=== PATIENT | female | born 1935 | race African-American/Black ===

== ENCOUNTER 2018-08-27 20:39 | Inpatient (IN) | payer MEDICARE, MEDICAID ==
[~2018-08-27] VITALS: Ht 167.6 cm; Wt 56.7 kg
[~2018-08-27 20:39] MED LIST: ASPI-1159 PO; BENA20TA10 PO; CHOL500010 PO; SIMV10TA6 PO
[2018-08-27] MEDS ORDERED: SODIUM CHLORIDE 0.9% 1000ML BAG (SEPSIS BOLUS) IV ONE (21:00)
[2018-08-27 21:55] LABS: BASOPHILS % 0.6 % (0.0-2.0); EOSINOPHILS % 1.6 % (0.0-5.0); HEMATOCRIT. 32.4 % (36.0-48.0); HEMOGLOBIN. 9.8 g/dL (12.0-16.0); LYMPHOCYTES % 33.8 % (20.0-50.0); MEAN CORPUSCULAR HEMOGLOBIN 26.8 pg (28.0-32.0); MEAN CORPUSCULAR VOLUME 88.8 fL (81.0-99.0); MEAN PLATELET VOLUME 8.3 fl (7.4-10.4); MONOCYTES % 5.6 % (2.0-8.0); NEUTROPHILS % 58.4 % (40.0-76.0); PLATELET 197 x1000/uL (130-400); RED BLOOD CELL COUNT 3.65 mill/uL (4.2-5.4); RED CELL DISTRIBUTION WIDTH 14.3 % (11.6-14.6)
[2018-08-27 21:59] LABS: CHLORIDE 110 mEq/L (98-107)
[2018-08-27 23:08] LABS: CLARITY URINE CLEAR (CLEAR); COLOR URINE YELLOW (YELLOW); KETONES URINE NEGATIVE (NEGATIVE); LEUKOCYTE ESTERASE URINE NEGATIVE (NEGATIVE); NITRITE URINE NEGATIVE (NEGATIVE); OCCULT BLOOD URINE NEGATIVE (NEGATIVE); PH URINE 6.5 (4.5-8.0); PROTEIN URINE NEGATIVE (NEGATIVE); SPECIFIC GRAVITY URINE 1.007 (1.005-1.030); UROBILINOGEN URINE 0.2 E.U./dL (0.2-1.0)
[2018-08-28] MEDS ORDERED: ACETAMINOPHEN 325MG TABLET PO PRN (08:30)
[2018-08-28] MEDS ORDERED: GUAIFENESIN 200MG/10ML SUGAR FREE UDC PO PRN (08:30)
[2018-08-28] MEDS ORDERED: ONDANSETRON HCL 4MG/2ML INJ IV PRN (08:30)
[2018-08-28] MEDS ORDERED: MAGNESIUM/ALUMINUM HYDROXIDE/SIMETHICONE 30ML UDC PO PRN (08:30)
[2018-08-28] MEDS ORDERED: CLONIDINE 0.1MG TABLET PO PRN (08:30)
[2018-08-28] MEDS ORDERED: IPRATROPIUM/ALBUTEROL 0.5-3(2.5)MG/3ML NEB INH PRN (08:30)
[2018-08-28] MEDS ORDERED: DEXTROSE 50% WATER 50ML SYRINGE IV PRN ×2 (08:30)
[2018-08-28 10:12] LABS: BASOPHILS % 0.6 % (0.0-2.0); EOSINOPHILS % 0.7 % (0.0-5.0); HEMATOCRIT. 35.1 % (36.0-48.0); HEMOGLOBIN. 10.9 g/dL (12.0-16.0); LYMPHOCYTES % 18.4 % (20.0-50.0); MEAN CORPUSCULAR HEMOGLOBIN 26.3 pg (28.0-32.0); MEAN CORPUSCULAR VOLUME 84.3 fL (81.0-99.0); MONOCYTES % 7.2 % (2.0-8.0); NEUTROPHILS % 73.1 % (40.0-76.0); PLATELET 229 x1000/uL (130-400); RED BLOOD CELL COUNT 4.16 mill/uL (4.2-5.4); RED CELL DISTRIBUTION WIDTH 14.1 % (11.6-14.6)
[2018-08-28 10:19] LABS: CHLORIDE 112 mEq/L (98-107)
[2018-08-28 10:26] LABS: TOTAL IRON BINDING CAPACITY 199 ug/dL (250-450)
[2018-08-28 10:28] LABS: HDL CHOLESTEROL 43 mg/dL (40-59); LDL CHOLESTEROL 125 mg/dL (5-100)
[2018-08-28 11:53] LABS: VITAMIN B12 SERUM 935 pg/mL (211-911)
[2018-08-28 12:10] LABS: HEPATITIS A AB IGM NEGATIVE (NEGATIVE)
[2018-08-28 13:42] LABS: HEPATITIS B SURFACE ANTIGEN NEGATIVE
[2018-08-28 14:38] VITALS: BP 134/84
[2018-08-28 14:43] VITALS: BP 128/82
[2018-08-28 14:46] VITALS: BP 129/77
[2018-08-28] MEDS ORDERED: SODIUM CHL 0.45% + KCL 20MEQ/L 1,000 ML IV SCH (16:00)
[2018-08-28] MEDS ORDERED: ENOXAPARIN 30MG/0.3ML SYR SUBCUT SCH (17:00)
[2018-08-28] MEDS: BLOOD SUGAR DIAGNOSTIC STRIP TEST SCH ×2 (17:20→21:00)
[2018-08-28] MEDS: ASPIRIN 81MG EC TABLET PO SCH (17:44)
[2018-08-28] MEDS: DOCUSATE SODIUM 250MG CAPSULE PO SCH (17:44)
[2018-08-28 17:54] VITALS: BP 134/84
[2018-08-28] MEDS: INSULIN LISPRO 100 UNITS/ML SUBCUT SCH ×2 (19:04→21:00)
[2018-08-28 19:24] LABS: CREATINE KINASE MB FRACTION 3.5 ng/mL (0.5-3.6)
[2018-08-28 21:09] VITALS: BP 134/85
[2018-08-28] MEDS: MEMANTINE HCL 10MG TABLET PO SCH (21:20)
[2018-08-28] MEDS: ATORVASTATIN CALCIUM 10MG TABLET PO SCH (21:20)
[2018-08-28] MEDS: ENOXAPARIN 40MG/0.4ML SYR SUBCUT SCH (21:20)
[2018-08-28 23:51] VITALS: BP 144/85
[2018-08-29] VITALS (8 sets, daily range): BP systolic 91–177; BP diastolic 54–102
[2018-08-29 05:55] LABS: BASOPHILS % 0.7 % (0.0-2.0); EOSINOPHILS % 0.9 % (0.0-5.0); HEMATOCRIT. 35.7 % (36.0-48.0); HEMOGLOBIN. 11.2 g/dL (12.0-16.0); LYMPHOCYTES % 25.1 % (20.0-50.0); MEAN CORPUSCULAR HEMOGLOBIN 26.6 pg (28.0-32.0); MEAN CORPUSCULAR VOLUME 84.5 fL (81.0-99.0); MEAN PLATELET VOLUME 8.5 fl (7.4-10.4); NEUTROPHILS % 65.3 % (40.0-76.0); PLATELET 239 x1000/uL (130-400); RED BLOOD CELL COUNT 4.23 mill/uL (4.2-5.4); RED CELL DISTRIBUTION WIDTH 14.1 % (11.6-14.6)
[2018-08-29] MEDS: BLOOD SUGAR DIAGNOSTIC STRIP TEST SCH ×5 (06:23→21:00)
[2018-08-29 06:27] LABS: CHLORIDE 108 mEq/L (98-107)
[2018-08-29 07:20] LABS: CREATINE KINASE 152 IU/L (26-192)
[2018-08-29 07:22] LABS: CREATINE KINASE MB FRACTION 2.3 ng/mL (0.5-3.6)
[2018-08-29] MEDS: INSULIN LISPRO 100 UNITS/ML SUBCUT SCH ×4 (07:50→21:00)
[2018-08-29] MEDS: DOCUSATE SODIUM 250MG CAPSULE PO SCH (08:46)
[2018-08-29] MEDS: ASPIRIN 81MG EC TABLET PO SCH (08:46)
[2018-08-29] MEDS: MEMANTINE HCL 10MG TABLET PO SCH ×2 (08:46→22:03)
[2018-08-29] MEDS: ENOXAPARIN 40MG/0.4ML SYR SUBCUT SCH ×2 (08:46→22:03)
[2018-08-29] MEDS: AMLODIPINE 5MG TABLET PO SCH ×2 (12:04→21:00)
[2018-08-29] MEDS: SODIUM CHL 0.45% + KCL 20MEQ/L 1,000 ML IV SCH (15:21)
[2018-08-29] MEDS ORDERED: SODIUM CHL 0.45% + KCL 20MEQ/L 1,000 ML IV SCH (17:00)
[2018-08-29] MEDS: ATORVASTATIN CALCIUM 10MG TABLET PO SCH (22:03)
[2018-08-30] VITALS (7 sets, daily range): BP systolic 120–175; BP diastolic 66–82
[2018-08-30] MEDS: SODIUM CHL 0.45% + KCL 20MEQ/L 1,000 ML IV SCH (03:43)
[2018-08-30] MEDS: BLOOD SUGAR DIAGNOSTIC STRIP TEST SCH ×3 (06:33→21:00)
[2018-08-30 06:59] LABS: BASOPHILS % 0.8 % (0.0-2.0); EOSINOPHILS % 2.7 % (0.0-5.0); HEMATOCRIT. 36.5 % (36.0-48.0); HEMOGLOBIN. 11.5 g/dL (12.0-16.0); LYMPHOCYTES % 41.3 % (20.0-50.0); MEAN CORPUSCULAR HEMOGLOBIN 26.8 pg (28.0-32.0); MEAN PLATELET VOLUME 8.9 fl (7.4-10.4); MONOCYTES % 7.9 % (2.0-8.0); NEUTROPHILS % 47.3 % (40.0-76.0); PLATELET 266 x1000/uL (130-400); RED CELL DISTRIBUTION WIDTH 14.2 % (11.6-14.6)
[2018-08-30] MEDS: INSULIN LISPRO 100 UNITS/ML SUBCUT SCH ×3 (07:50→21:00)
[2018-08-30 07:59] LABS: CHLORIDE 110 mEq/L (98-107)
[2018-08-30 08:23] LABS: CREATINE KINASE 200 IU/L (26-192)
[2018-08-30 08:25] LABS: CREATINE KINASE MB FRACTION 1.6 ng/mL (0.5-3.6)
[2018-08-30] MEDS: DOCUSATE SODIUM 250MG CAPSULE PO SCH (08:59)
[2018-08-30] MEDS: ASPIRIN 81MG EC TABLET PO SCH (08:59)
[2018-08-30] MEDS: MEMANTINE HCL 10MG TABLET PO SCH ×2 (08:59→22:50)
[2018-08-30] MEDS: ENOXAPARIN 40MG/0.4ML SYR SUBCUT SCH ×2 (08:59→22:53)
[2018-08-30] MEDS: AMLODIPINE 5MG TABLET PO SCH ×2 (08:59→22:52)
[2018-08-30] MEDS: ATORVASTATIN CALCIUM 10MG TABLET PO SCH (22:50)
[2018-08-31] VITALS: BP 128/60
[2018-08-31 04:00] VITALS: BP 143/75
[2018-08-31] MEDS: BLOOD SUGAR DIAGNOSTIC STRIP TEST SCH (06:41)
[2018-08-31] MEDS: SODIUM CHL 0.45% + KCL 20MEQ/L 1,000 ML IV SCH (06:41)
[2018-08-31] MEDS: INSULIN LISPRO 100 UNITS/ML SUBCUT SCH (06:51)
[2018-08-31 08:00] VITALS: BP 152/78
[2018-08-31 09:12] LABS: INR 1.1
[2018-08-31 09:14] LABS: BASOPHILS % 0.7 % (0.0-2.0); EOSINOPHILS % 1.3 % (0.0-5.0); HEMATOCRIT. 35.7 % (36.0-48.0); HEMOGLOBIN. 11.1 g/dL (12.0-16.0); LYMPHOCYTES % 25.7 % (20.0-50.0); MEAN CORPUSCULAR HEMOGLOBIN 26.3 pg (28.0-32.0); MEAN CORPUSCULAR VOLUME 84.4 fL (81.0-99.0); MEAN PLATELET VOLUME 8.4 fl (7.4-10.4); MONOCYTES % 9.1 % (2.0-8.0); NEUTROPHILS % 63.2 % (40.0-76.0); PLATELET 317 x1000/uL (130-400); RED BLOOD CELL COUNT 4.22 mill/uL (4.2-5.4); RED CELL DISTRIBUTION WIDTH 14.3 % (11.6-14.6)
[2018-08-31 09:43] LABS: CHLORIDE 109 mEq/L (98-107)
[2018-08-31] MEDS: DOCUSATE SODIUM 250MG CAPSULE PO SCH (09:57)
[2018-08-31] MEDS: MEMANTINE HCL 10MG TABLET PO SCH (09:57)
[2018-08-31] MEDS: ENOXAPARIN 40MG/0.4ML SYR SUBCUT SCH (09:57)
[2018-08-31] MEDS: ASPIRIN 81MG EC TABLET PO SCH (09:57)
[2018-08-31] MEDS: AMLODIPINE 5MG TABLET PO SCH (09:57)
[2018-08-31 10:38] VITALS: BP 133/64
== END 2018-08-31 11:55 | DRG 280 ==
LOC: ER 20:39 → 6WST 08-28 00:45 → EDBEDREQ 08-28 00:49 → EDBEDREQTM 08-28 00:49 → EDBEDREQDT 08-28 00:49 → ENRESERV 08-28 12:49
PROVIDERS: ADMIT Internal Medicine Geriatric Medicine; ATTEND Internal Medicine Geriatric Medicine
DX: I21.4 Non-ST elevation (NSTEMI) myocardial infarction (principal); K72.00 Acute and subacute hepatic failure without coma; E87.0 Hyperosmolality and hypernatremia; I82.432 Acute embolism and thrombosis of left popliteal vein; I82.412 Acute embolism and thrombosis of left femoral vein; E11.65 Type 2 diabetes mellitus with hyperglycemia; G90.8 Other disorders of autonomic nervous system; E87.6 Hypokalemia; D63.8 Anemia in other chronic diseases classified elsewhere; I07.1 Rheumatic tricuspid insufficiency; I27.20 Pulmonary hypertension, unspecified; E11.649 Type 2 diabetes mellitus with hypoglycemia without coma; E78.00 Pure hypercholesterolemia, unspecified; E78.5 Hyperlipidemia, unspecified; W18.39XA Other fall on same level, initial encounter; F02.80 Dementia in other diseases classified elsewhere, unspecified severity, without behavioral disturbance, psychotic disturbance, mood disturbance, and anxiety; G30.9 Alzheimer's disease, unspecified; I10 Essential (primary) hypertension; Z79.82 Long term (current) use of aspirin; Y93.89 Activity, other specified; Y92.89 Other specified places as the place of occurrence of the external cause; Y99.8 Other external cause status
CPT/HCPCS: 36415; 70551; 71045; 73521; 80048; 80061; 82550; 82553; 82607; 82746; 82962; 83036; 83540; 83550; 83735; 84443; 84484; 86705; 86709; 86803; 87340; 93005; 93306; 93880; 93970; 96365; 99285; C1893; J1650; J3480; J7030

== ENCOUNTER 2019-08-24 15:26 | Emergency (ER) | payer MEDICAID, MEDICARE ==
[~2019-08-24] VITALS: Ht 162.6 cm; Wt 52.0 kg
[~2019-08-24 15:26] MED LIST changes: -ASPI-1159 PO; +ASPI-1497 PO; -BENA20TA10 PO; -CHOL500010 PO; -SIMV10TA6 PO
[2019-08-24 15:50] VITALS: BP 172/91
== END 2019-08-24 20:26 | disposition left against medical advice (07) ==
LOC: ER 15:26
DX: M79.605 Pain in left leg (principal); R44.1 Visual hallucinations; Z04.6 Encounter for general psychiatric examination, requested by authority; Z53.21 Procedure and treatment not carried out due to patient leaving prior to being seen by health care provider

== ENCOUNTER 2019-08-25 16:37 | Emergency (ER) | payer MEDICARE | END 2019-08-25 19:21 | disposition left against medical advice (07) | LOC: ER 16:37 | DX: Z53.21 Procedure and treatment not carried out due to patient leaving prior to being seen by health care provider (principal) ==

== ENCOUNTER 2020-03-02 17:43 | Inpatient (IN) | payer MEDICARE, MEDICAID ==
[~2020-03-02] VITALS: Ht 165.1 cm; Wt 63.2 kg
[~2020-03-02 17:43] MED LIST changes: -ASPI-1497 PO; +CLON1PAT11 TP; +RIVA1PAT12 TD
[2020-03-02] MEDS ORDERED: SODIUM CHLORIDE 0.9% 1,000 ML IV ONE (19:02)
[2020-03-02 19:43] LABS: HEMATOCRIT. 30.8 % (36.0-48.0); HEMOGLOBIN. 9.5 g/dL (12.0-16.0); MEAN CORPUSCULAR HEMOGLOBIN 25.5 pg (28.0-32.0); MEAN CORPUSCULAR VOLUME 82.9 fL (81.0-99.0); MEAN PLATELET VOLUME 7.9 fl (7.4-10.4); PLATELET 307 x1000/uL (130-400); RED BLOOD CELL COUNT 3.71 mill/uL (4.2-5.4); RED CELL DISTRIBUTION WIDTH 14.1 % (11.6-14.6)
[2020-03-02 19:46] LABS: CHLORIDE 111 mEq/L (98-107)
[2020-03-02 20:10] LABS: PLATELET ESTIMATE NORMAL
[2020-03-02 21:20] LABS: CLARITY URINE CLEAR (CLEAR); COLOR URINE DARK YELLOW (YELLOW); KETONES URINE TRACE (NEGATIVE); LEUKOCYTE ESTERASE URINE NEGATIVE (NEGATIVE); NITRITE URINE NEGATIVE (NEGATIVE); OCCULT BLOOD URINE NEGATIVE (NEGATIVE); PROTEIN URINE 1+ (NEGATIVE); SPECIFIC GRAVITY URINE 1.035 (1.005-1.030)
[2020-03-02] MEDS ORDERED: ONDANSETRON HCL 4MG/2ML INJ IV PRN (23:00)
[2020-03-02] MEDS ORDERED: ACETAMINOPHEN 325MG TABLET PO PRN (23:00)
[2020-03-02] MEDS ORDERED: LORAZEPAM 2MG/ML CPJ IV PRN (23:00)
[2020-03-03 00:04] LABS: TOTAL IRON BINDING CAPACITY 158 ug/dL (250-450)
[2020-03-03] MEDS: DEXT 5%/0.45% NACL KCL 20MEQ/L 1,000 ML IV SCH ×2 (01:23→13:02)
[2020-03-03 03:00] VITALS: BP 147/78
[2020-03-03] MEDS ORDERED: DEXTROSE 50% WATER 50ML SYRINGE IV PRN (03:45)
[2020-03-03 04:00] VITALS: BP 147/78
[2020-03-03] MEDS: BLOOD SUGAR DIAGNOSTIC STRIP TEST SCH ×4 (06:38→21:22)
[2020-03-03] MEDS: INSULIN LISPRO 100 UNITS/ML SUBCUT SCH ×4 (06:39→21:00)
[2020-03-03] MEDS: OMEPRAZOLE 20MG CAPSULE EXTENDED RELEASE PO SCH ×2 (06:59→21:23)
[2020-03-03 07:04] LABS: CHLORIDE 115 mEq/L (98-107)
[2020-03-03 07:15] LABS: HEMATOCRIT. 27.2 % (36.0-48.0); HEMOGLOBIN. 8.4 g/dL (12.0-16.0); MEAN CORPUSCULAR HEMOGLOBIN 25.4 pg (28.0-32.0); RED BLOOD CELL COUNT 3.32 mill/uL (4.2-5.4); RED CELL DISTRIBUTION WIDTH 13.9 % (11.6-14.6)
[2020-03-03 07:16] LABS: LDL CHOLESTEROL 94 mg/dL (5-100)
[2020-03-03 07:18] LABS: HDL CHOLESTEROL 39 mg/dL (40-59)
[2020-03-03 07:29] LABS: CREATINE KINASE MB FRACTION < 1.0 ng/mL (0.5-3.6)
[2020-03-03 08:00] VITALS: BP 136/77
[2020-03-03] MEDS ORDERED: RIVASTIGMINE 4.6 MG/24 HR TD PATCH TD SCH (09:00)
[2020-03-03] MEDS: MULTIVITAMINS,THER W-MINERALS TABLET PO SCH (10:32)
[2020-03-03] MEDS: DOCUSATE SODIUM 250MG CAPSULE PO SCH (10:32)
[2020-03-03] MEDS ORDERED: LEVOFLOXACIN 250MG TABLET PO SCH (11:00)
[2020-03-03 11:45] VITALS: BP 131/66
[2020-03-03 11:46] LABS: PLATELET 236 x1000/uL (130-400)
[2020-03-03 11:49] LABS: PLATELET ESTIMATE NORMAL
[2020-03-03] MEDS: FERROUS SULFATE 300MG/5ML UDC PO SCH ×2 (12:15→17:17)
[2020-03-03] MEDS: LEVOFLOXACIN 250MG TABLET PO SCH (12:15)
[2020-03-03 16:00] VITALS: BP 143/78
[2020-03-03 16:48] LABS: CREATINE KINASE MB FRACTION < 1.0 ng/mL (0.5-3.6)
[2020-03-03 20:00] VITALS: BP 125/67
[2020-03-04] VITALS (7 sets, daily range): BP systolic 144–158; BP diastolic 64–83
[2020-03-04] MEDS: DEXT 5%/0.45% NACL KCL 20MEQ/L 1,000 ML IV SCH ×2 (03:46→13:30)
[2020-03-04 06:11] LABS: CHLORIDE 113 mEq/L (98-107)
[2020-03-04] MEDS: FERROUS SULFATE 300MG/5ML UDC PO SCH ×3 (06:16→17:44)
[2020-03-04] MEDS: OMEPRAZOLE 20MG CAPSULE EXTENDED RELEASE PO SCH ×2 (06:16→21:23)
[2020-03-04] MEDS: BLOOD SUGAR DIAGNOSTIC STRIP TEST SCH ×4 (06:26→21:23)
[2020-03-04] MEDS: INSULIN LISPRO 100 UNITS/ML SUBCUT SCH ×4 (06:26→21:00)
[2020-03-04 06:27] LABS: BASOPHILS % 0.4 % (0.0-2.0); HEMATOCRIT. 26.5 % (36.0-48.0); HEMOGLOBIN. 8.4 g/dL (12.0-16.0); LYMPHOCYTES % 19.2 % (20.0-50.0); MEAN CORPUSCULAR HEMOGLOBIN 26.1 pg (28.0-32.0); MEAN CORPUSCULAR VOLUME 82.6 fL (81.0-99.0); MEAN PLATELET VOLUME 8.2 fl (7.4-10.4); MONOCYTES % 7.6 % (2.0-8.0); NEUTROPHILS % 70.8 % (40.0-76.0); PLATELET 235 x1000/uL (130-400); RED BLOOD CELL COUNT 3.21 mill/uL (4.2-5.4); RED CELL DISTRIBUTION WIDTH 14.3 % (11.6-14.6)
[2020-03-04] MEDS: DOCUSATE SODIUM 250MG CAPSULE PO SCH (08:15)
[2020-03-04] MEDS: RIVASTIGMINE 4.6 MG/24 HR TD PATCH TD SCH (08:15)
[2020-03-04] MEDS: MULTIVITAMINS,THER W-MINERALS TABLET PO SCH (08:15)
[2020-03-04] MEDS: LEVOFLOXACIN 250MG TABLET PO SCH (11:00)
[2020-03-05] VITALS: BP 159/77
[2020-03-05] MEDS: DEXT 5%/0.45% NACL KCL 20MEQ/L 1,000 ML IV SCH ×2 (03:23→17:28)
[2020-03-05 04:00] VITALS: BP 147/76
[2020-03-05] MEDS: BLOOD SUGAR DIAGNOSTIC STRIP TEST SCH ×4 (06:26→21:14)
[2020-03-05] MEDS: INSULIN LISPRO 100 UNITS/ML SUBCUT SCH ×4 (06:26→21:00)
[2020-03-05] MEDS: FERROUS SULFATE 300MG/5ML UDC PO SCH ×3 (06:30→17:35)
[2020-03-05 07:03] LABS: CHLORIDE 107 mEq/L (98-107)
[2020-03-05 07:16] LABS: HEMATOCRIT. 30.6 % (36.0-48.0); HEMOGLOBIN. 9.7 g/dL (12.0-16.0); MEAN CORPUSCULAR HEMOGLOBIN 26.2 pg (28.0-32.0); MEAN CORPUSCULAR VOLUME 82.8 fL (81.0-99.0); MEAN PLATELET VOLUME 8.6 fl (7.4-10.4); PLATELET 245 x1000/uL (130-400); RED CELL DISTRIBUTION WIDTH 14.1 % (11.6-14.6)
[2020-03-05 08:02] VITALS: BP 163/75
[2020-03-05] MEDS: MULTIVITAMINS,THER W-MINERALS TABLET PO SCH (08:46)
[2020-03-05] MEDS: RIVASTIGMINE 4.6 MG/24 HR TD PATCH TD SCH (08:46)
[2020-03-05] MEDS: FAMOTIDINE 20MG TABLET PO SCH (08:46)
[2020-03-05] MEDS: DOCUSATE SODIUM 250MG CAPSULE PO SCH (08:46)
[2020-03-05] MEDS: CLONIDINE 0.1MG TABLET PO PRN ×2 (08:47→21:04)
[2020-03-05 10:58] LABS: PLATELET ESTIMATE NORMAL
[2020-03-05] MEDS: LEVOFLOXACIN 250MG TABLET PO SCH (11:49)
[2020-03-05 12:00] VITALS: BP_SYST 121; BP_SYST 128; BP_DIAS 65; BP_DIAS 81
[2020-03-05 15:59] VITALS: BP 135/84
[2020-03-05 20:00] VITALS: BP 164/90
[2020-03-06] VITALS: BP 167/90
[2020-03-06] MEDS ORDERED: HYDRALAZINE 20MG/ML VIAL IV PRN (02:00)
[2020-03-06 04:00] VITALS: BP 150/78
[2020-03-06] MEDS: DEXT 5%/0.45% NACL KCL 20MEQ/L 1,000 ML IV SCH (06:07)
[2020-03-06] MEDS: FERROUS SULFATE 300MG/5ML UDC PO SCH ×2 (06:31→12:15)
[2020-03-06] MEDS: INSULIN LISPRO 100 UNITS/ML SUBCUT SCH ×2 (06:44→12:15)
[2020-03-06] MEDS: BLOOD SUGAR DIAGNOSTIC STRIP TEST SCH ×2 (06:44→11:45)
[2020-03-06 08:00] VITALS: BP 136/63
[2020-03-06] MEDS ORDERED: LEVO500T2 MT (09:08)
[2020-03-06] MEDS ORDERED: GABA-529 PO (09:08)
[2020-03-06] MEDS ORDERED: GABAPENTIN 100MG CAPSULE PO NR (09:15)
[2020-03-06] MEDS: MULTIVITAMINS,THER W-MINERALS TABLET PO SCH (09:30)
[2020-03-06] MEDS: RIVASTIGMINE 4.6 MG/24 HR TD PATCH TD SCH (09:30)
[2020-03-06] MEDS: DOCUSATE SODIUM 250MG CAPSULE PO SCH (09:30)
[2020-03-06] MEDS: FAMOTIDINE 20MG TABLET PO SCH (09:30)
[2020-03-06] MEDS ORDERED: CLONIDINE HCL 0.1MG/24HR PATCH TD SCH (10:30)
[2020-03-06] MEDS: LEVOFLOXACIN 250MG TABLET PO SCH (11:29)
[2020-03-06 14:28] VITALS: BP 118/72
[2020-03-06] MEDS ORDERED: GABAPENTIN 100MG CAPSULE PO SCH (18:00)
[2020-03-06] MEDS ORDERED: ACETAMINOPHEN 325MG TABLET PO SCH (18:00)
== END 2020-03-06 15:40 | disposition home health service (06) | DRG 314 ==
LOC: ER 17:43 → 5WST 03-03 00:21 → EDBEDREQ 03-03 00:26 → EDBEDREQTM 03-03 00:26 → ENRESERV 03-03 01:51
PROVIDERS: ADMIT Internal Medicine Geriatric Medicine; ATTEND Internal Medicine Geriatric Medicine
DX: I95.9 Hypotension, unspecified (principal); G92 Toxic encephalopathy; E43 Unspecified severe protein-calorie malnutrition; E87.0 Hyperosmolality and hypernatremia; N39.0 Urinary tract infection, site not specified; G91.9 Hydrocephalus, unspecified; N17.9 Acute kidney failure, unspecified; I10 Essential (primary) hypertension; G30.9 Alzheimer's disease, unspecified; L89.216 Pressure-induced deep tissue damage of right hip; G90.8 Other disorders of autonomic nervous system; D50.0 Iron deficiency anemia secondary to blood loss (chronic); F02.80 Dementia in other diseases classified elsewhere, unspecified severity, without behavioral disturbance, psychotic disturbance, mood disturbance, and anxiety; E86.0 Dehydration; E78.5 Hyperlipidemia, unspecified; E11.65 Type 2 diabetes mellitus with hyperglycemia; M19.90 Unspecified osteoarthritis, unspecified site; G89.29 Other chronic pain; I25.2 Old myocardial infarction; Z68.23 Body mass index [BMI] 23.0-23.9, adult
CPT/HCPCS: 36415; 71045; 73502; 80048; 80053; 80061; 81003; 82553; 82962; 83036; 83540; 83550; 83605; 84134; 84443; 84484; 85025; 92610; 93005; 97162; 97530; 99291; J7030

== ENCOUNTER 2020-04-20 01:55 | Inpatient (IN) | payer MEDICARE, MEDICAID ==
[~2020-04-20] VITALS: Ht 165.1 cm; Wt 45.8 kg
[~2020-04-20 01:55] MED LIST changes: +GABA-529 PO; +LEVO500T2 MT
[2020-04-20] MEDS ORDERED: SODIUM CHLORIDE 0.9% 1,000 ML IV ONE (02:34)
[2020-04-20 03:21] LABS: BASOPHILS % 0.4 % (0.0-2.0); EOSINOPHILS % 0.3 % (0.0-5.0); HEMATOCRIT. 30.4 % (36.0-48.0); HEMOGLOBIN. 9.3 g/dL (12.0-16.0); LYMPHOCYTES % 16.5 % (20.0-50.0); MEAN CORPUSCULAR VOLUME 84.4 fL (81.0-99.0); MEAN PLATELET VOLUME 9.3 fl (7.4-10.4); MONOCYTES % 6.9 % (2.0-8.0); NEUTROPHILS % 75.9 % (40.0-76.0); PLATELET 143 x1000/uL (130-400); RED CELL DISTRIBUTION WIDTH 17.5 % (11.6-14.6)
[2020-04-20 03:23] LABS: CHLORIDE 112 mEq/L (98-107)
[2020-04-20 03:39] LABS: CLARITY URINE TURBID (CLEAR); COLOR URINE DARK YELLOW (YELLOW); KETONES URINE NEGATIVE (NEGATIVE); LEUKOCYTE ESTERASE URINE TRACE (NEGATIVE); NITRITE URINE NEGATIVE (NEGATIVE); OCCULT BLOOD URINE 1+ (NEGATIVE); PROTEIN URINE 1+ (NEGATIVE); SPECIFIC GRAVITY URINE 1.027 (1.005-1.030)
[2020-04-20 08:30] VITALS: BP 91/62
[2020-04-20] MEDS ORDERED: MAGNESIUM/ALUMINUM HYDROXIDE/SIMETHICONE 30ML UDC PO PRN (08:30)
[2020-04-20] MEDS ORDERED: ZOLPIDEM TARTRATE 5MG TABLET PO PRN (08:30)
[2020-04-20] MEDS ORDERED: ONDANSETRON HCL 4MG/2ML INJ IV PRN (08:30)
[2020-04-20] MEDS ORDERED: CLONIDINE 0.1MG TABLET PO PRN (08:30)
[2020-04-20] MEDS ORDERED: DOCUSATE SODIUM 250MG CAPSULE PO SCH (08:30)
[2020-04-20] MEDS ORDERED: ACETAMINOPHEN 325MG TABLET PO PRN (08:30)
[2020-04-20] MEDS: MULTIVITAMINS,THER W-MINERALS TABLET PO SCH (09:00)
[2020-04-20] MEDS: DOCUSATE SODIUM 250MG CAPSULE PO SCH (09:00)
[2020-04-20 09:49] VITALS: BP 91/62
[2020-04-20 09:58] LABS: CHLORIDE 116 mEq/L (98-107)
[2020-04-20] MEDS ORDERED: LEVOFLOXACIN 500MG PREMIX 100 ML IV SCH (10:00)
[2020-04-20 10:15] LABS: TOTAL IRON BINDING CAPACITY 126 ug/dL (250-450)
[2020-04-20] MEDS: DEXT 5%/0.45% NACL KCL 20MEQ/L 1,000 ML IV SCH ×2 (12:31→23:20)
[2020-04-20] MEDS: RIVASTIGMINE 4.6 MG/24 HR TD PATCH TD SCH (12:33)
[2020-04-20 13:00] VITALS: BP 90/61
[2020-04-20 16:00] VITALS: BP 87/61
[2020-04-20 17:25] LABS: BG BASE EXCESS 0.1 mmol/L (-2.0-2.0); BG CARBOXYHEMOGLOBIN 0.4 % (0.5-1.5); BG FRACTION INSPIRED OXYGEN 21; BG HCO3 ACT 23.9 mmol/L (22.0-26.0); BG METHEMOGLOBIN 0.3 % (0.0-1.5); BG OXYHEMOGLOBIN 96.3 % (94.0-97.0); BG PCO2 35.4 mmHg (35.0-45.0); BG PH 7.447 (7.350-7.450); BG PO2 90.6 mmHg (75.0-100.0); BG SAMPLE SITE RIGHT RADIAL; BG TOTAL HEMOGLOBIN 9.5 g/dL (12.0-18.0); BG VENT MODE ROOM AIR
[2020-04-20] MEDS: ENOXAPARIN 60MG/0.6ML SYR SUBCUT SCH (18:10)
[2020-04-20 20:00] VITALS: BP 97/66
[2020-04-20] MEDS: FAMOTIDINE 20MG TABLET PO SCH (21:38)
[2020-04-21] VITALS: BP 103/62
[2020-04-21 04:00] VITALS: BP 108/54
[2020-04-21] MEDS: ENOXAPARIN 60MG/0.6ML SYR SUBCUT SCH (06:00)
[2020-04-21 08:00] VITALS: BP 117/79
[2020-04-21] MEDS: DOCUSATE SODIUM 250MG CAPSULE PO SCH (08:41)
[2020-04-21] MEDS: MULTIVITAMINS,THER W-MINERALS TABLET PO SCH (08:41)
[2020-04-21] MEDS: RIVASTIGMINE 4.6 MG/24 HR TD PATCH TD SCH (08:42)
[2020-04-21] MEDS: LEVOFLOXACIN 250MG PREMIX 50 ML IV SCH (08:44)
[2020-04-21 09:04] LABS: BASOPHILS % 0.4 % (0.0-2.0); EOSINOPHILS % 0.8 % (0.0-5.0); HEMATOCRIT. 33.2 % (36.0-48.0); HEMOGLOBIN. 10.4 g/dL (12.0-16.0); LYMPHOCYTES % 22.6 % (20.0-50.0); MEAN CORPUSCULAR HEMOGLOBIN 26.7 pg (28.0-32.0); MEAN CORPUSCULAR VOLUME 85.5 fL (81.0-99.0); MEAN PLATELET VOLUME 10.2 fl (7.4-10.4); MONOCYTES % 5.4 % (2.0-8.0); NEUTROPHILS % 70.8 % (40.0-76.0); PLATELET 149 x1000/uL (130-400); RED BLOOD CELL COUNT 3.88 mill/uL (4.2-5.4); RED CELL DISTRIBUTION WIDTH 17.5 % (11.6-14.6)
[2020-04-21 09:10] LABS: INR 1.1; PROTHROMBIN TIME 11.9 sec (9.6-11.0)
[2020-04-21 09:14] LABS: CHLORIDE 114 mEq/L (98-107)
[2020-04-21 12:00] VITALS: BP 105/69
[2020-04-21] MEDS ORDERED: MIDAZOLAM HCL 5 MG/5 ML VIAL ONE (16:31)
[2020-04-21] MEDS ORDERED: FENTANYL CITRATE/PF 50MCG/ML 2ML VIAL ONE ×2 (16:32→16:34)
[2020-04-21] MEDS ORDERED: MIDAZOLAM HCL 5 MG/5 ML VIAL IV PRN (16:43)
[2020-04-21] MEDS: DEXT 5%/0.45% NACL KCL 20MEQ/L 1,000 ML IV SCH (18:38)
[2020-04-21 20:00] VITALS: BP 127/77
[2020-04-21] MEDS: FAMOTIDINE 20MG TABLET PO SCH (21:00)
[2020-04-22] VITALS: BP 106/71
[2020-04-22] MEDS: DEXT 5%/0.45% NACL KCL 20MEQ/L 1,000 ML IV SCH (02:13)
[2020-04-22 04:00] VITALS: BP 110/65
[2020-04-22 08:00] VITALS: BP 130/64
[2020-04-22 08:46] LABS: HEMATOCRIT. 29.2 % (36.0-48.0); HEMOGLOBIN. 8.8 g/dL (12.0-16.0); MEAN CORPUSCULAR HEMOGLOBIN 25.7 pg (28.0-32.0); MEAN CORPUSCULAR VOLUME 84.7 fL (81.0-99.0); MEAN PLATELET VOLUME 9.4 fl (7.4-10.4); PLATELET 178 x1000/uL (130-400); RED BLOOD CELL COUNT 3.44 mill/uL (4.2-5.4); RED CELL DISTRIBUTION WIDTH 17.3 % (11.6-14.6)
[2020-04-22] MEDS: MULTIVITAMINS,THER W-MINERALS TABLET PO SCH (09:00)
[2020-04-22] MEDS: DOCUSATE SODIUM 250MG CAPSULE PO SCH (09:00)
[2020-04-22 09:02] LABS: CHLORIDE 116 mEq/L (98-107)
[2020-04-22] MEDS: RIVASTIGMINE 4.6 MG/24 HR TD PATCH TD SCH (10:10)
[2020-04-22] MEDS: LEVOFLOXACIN 250MG PREMIX 50 ML IV SCH (10:11)
[2020-04-22 12:00] VITALS: BP 93/60
[2020-04-22 13:20] LABS: HEMATOCRIT 28.2 % (36.0-48.0); HEMOGLOBIN 8.4 g/dL (12.0-16.0)
[2020-04-22 13:59] LABS: NUCLEATED RED BLOOD CELLS 1 /100 WBC; PLATELET ESTIMATE NORMAL
[2020-04-22] MEDS: CEFTRIAXONE 1,000 MG in DEXTROSE 5% WATER 50 ML IV SCH (14:21)
[2020-04-22 16:00] VITALS: BP 91/55
[2020-04-22] MEDS: ENOXAPARIN 60MG/0.6ML SYR SUBCUT SCH (18:19)
[2020-04-22 20:00] VITALS: BP 108/60
[2020-04-22] MEDS: FAMOTIDINE 20MG TABLET PO SCH (20:53)
[2020-04-23] VITALS: BP 119/73
[2020-04-23 04:00] VITALS: BP 105/65
[2020-04-23] MEDS ORDERED: DEXTROSE 50% WATER 50ML SYRINGE IV PRN (04:15)
[2020-04-23] MEDS: BLOOD SUGAR DIAGNOSTIC STRIP TEST SCH ×4 (06:26→21:17)
[2020-04-23] MEDS: ENOXAPARIN 60MG/0.6ML SYR SUBCUT SCH ×2 (06:26→17:01)
[2020-04-23 08:00] VITALS: BP 96/59
[2020-04-23] MEDS: DOCUSATE SODIUM 250MG CAPSULE PO SCH ×2 (09:00→09:09)
[2020-04-23] MEDS: CEFTRIAXONE 1,000 MG in DEXTROSE 5% WATER 50 ML IV SCH (09:09)
[2020-04-23] MEDS: MULTIVITAMINS,THER W-MINERALS TABLET PO SCH (09:09)
[2020-04-23] MEDS: INSULIN LISPRO 100 UNITS/ML SUBCUT SCH ×4 (09:11→21:19)
[2020-04-23] MEDS: RIVASTIGMINE 4.6 MG/24 HR TD PATCH TD SCH (09:17)
[2020-04-23 10:37] LABS: BASOPHILS % 0.3 % (0.0-2.0); EOSINOPHILS % 0.5 % (0.0-5.0); HEMATOCRIT. 26.9 % (36.0-48.0); HEMOGLOBIN. 8.4 g/dL (12.0-16.0); LYMPHOCYTES % 12.4 % (20.0-50.0); MEAN CORPUSCULAR HEMOGLOBIN 26.8 pg (28.0-32.0); MEAN PLATELET VOLUME 9.7 fl (7.4-10.4); MONOCYTES % 5.2 % (2.0-8.0); NEUTROPHILS % 81.6 % (40.0-76.0); PLATELET 209 x1000/uL (130-400); RED BLOOD CELL COUNT 3.13 mill/uL (4.2-5.4); RED CELL DISTRIBUTION WIDTH 17.5 % (11.6-14.6)
[2020-04-23 10:52] LABS: CHLORIDE 116 mEq/L (98-107)
[2020-04-23 12:00] VITALS: BP 92/57
[2020-04-23 15:46] VITALS: BP 130/71
[2020-04-23] MEDS: FAMOTIDINE 20MG TABLET PO SCH (21:17)
[2020-04-24] MEDS: ENOXAPARIN 60MG/0.6ML SYR SUBCUT SCH (06:00)
[2020-04-24] MEDS: BLOOD SUGAR DIAGNOSTIC STRIP TEST SCH ×4 (06:23→20:34)
[2020-04-24 06:47] LABS: HEMATOCRIT. 27.4 % (36.0-48.0); HEMOGLOBIN. 8.4 g/dL (12.0-16.0); MEAN CORPUSCULAR HEMOGLOBIN 26.3 pg (28.0-32.0); MEAN CORPUSCULAR VOLUME 85.5 fL (81.0-99.0); MEAN PLATELET VOLUME 9.2 fl (7.4-10.4); PLATELET 239 x1000/uL (130-400); RED CELL DISTRIBUTION WIDTH 17.9 % (11.6-14.6)
[2020-04-24 06:51] LABS: CHLORIDE 117 mEq/L (98-107)
[2020-04-24] MEDS: INSULIN LISPRO 100 UNITS/ML SUBCUT SCH ×4 (07:46→20:36)
[2020-04-24] MEDS: MULTIVITAMINS,THER W-MINERALS TABLET PO SCH (07:48)
[2020-04-24] MEDS: DOCUSATE SODIUM 250MG CAPSULE PO SCH (07:48)
[2020-04-24] MEDS: RIVASTIGMINE 4.6 MG/24 HR TD PATCH TD SCH (07:50)
[2020-04-24 08:25] VITALS: BP 104/76
[2020-04-24] MEDS: CEFTRIAXONE 1,000 MG in DEXTROSE 5% WATER 50 ML IV SCH (09:58)
[2020-04-24] MEDS: APIXABAN 2.5 MG TABLET GT SCH ×2 (11:36→20:34)
[2020-04-24] MEDS: FERROUS SULFATE 300MG/5ML UDC GT SCH ×2 (11:42→16:50)
[2020-04-24 12:13] VITALS: BP 116/68
[2020-04-24 13:10] LABS: A/G RATIO 0.7 (0.7-1.7); ALBUMIN 2.6 g/dL (2.9-4.4); ALPHA-1-GLOBULIN 0.3 g/dL (0.0-0.4); ALPHA-2-GLOBULIN 1.3 g/dL (0.4-1.0); BETA GLOBULIN 1.2 g/dL (0.7-1.3); GAMMA GLOBULINS 1.2 g/dL (0.4-1.8); M-SPIKE Not Observed g/dL (Not Observed); TOTAL PROTEIN SERUM 6.6 g/dL (6.0-8.5)
[2020-04-24 16:29] VITALS: BP 102/56
[2020-04-24 20:00] VITALS: BP 122/75
[2020-04-24] MEDS: FAMOTIDINE 20MG TABLET PO SCH (20:34)
[2020-04-24 21:31] LABS: PLATELET ESTIMATE NORMAL
[2020-04-25] VITALS (13 sets, daily range): BP systolic 95–163; BP diastolic 52–106
[2020-04-25] MEDS: BLOOD SUGAR DIAGNOSTIC STRIP TEST SCH ×4 (06:50→21:00)
[2020-04-25] MEDS: INSULIN LISPRO 100 UNITS/ML SUBCUT SCH ×4 (07:35→21:00)
[2020-04-25 08:23] LABS: CHLORIDE 116 mEq/L (98-107)
[2020-04-25] MEDS: APIXABAN 2.5 MG TABLET GT SCH ×2 (08:24→22:05)
[2020-04-25] MEDS: RIVASTIGMINE 4.6 MG/24 HR TD PATCH TD SCH (08:24)
[2020-04-25] MEDS: FERROUS SULFATE 300MG/5ML UDC GT SCH ×3 (08:24→17:58)
[2020-04-25] MEDS: CEFTRIAXONE 1,000 MG in DEXTROSE 5% WATER 50 ML IV SCH (08:24)
[2020-04-25] MEDS: MULTIVITAMINS,THER W-MINERALS TABLET PO SCH (08:24)
[2020-04-25 08:29] LABS: BASOPHILS % 0.3 % (0.0-2.0); EOSINOPHILS % 1.3 % (0.0-5.0); HEMATOCRIT. 24.8 % (36.0-48.0); HEMOGLOBIN. 7.5 g/dL (12.0-16.0); LYMPHOCYTES % 18.4 % (20.0-50.0); MEAN CORPUSCULAR HEMOGLOBIN 26.9 pg (28.0-32.0); MEAN CORPUSCULAR VOLUME 88.7 fL (81.0-99.0); MEAN PLATELET VOLUME 9.1 fl (7.4-10.4); MONOCYTES % 7.4 % (2.0-8.0); NEUTROPHILS % 72.6 % (40.0-76.0); PLATELET 256 x1000/uL (130-400); RED CELL DISTRIBUTION WIDTH 17.9 % (11.6-14.6)
[2020-04-25] MEDS: DOCUSATE SODIUM 250MG CAPSULE PO SCH (09:00)
[2020-04-25] MEDS ORDERED: DOCU250C14 PO (09:06)
[2020-04-25] MEDS ORDERED: FE300LUD GT (09:06)
[2020-04-25] MEDS ORDERED: APIX2.5T GT (09:06)
[2020-04-25] MEDS ORDERED: RIVA1PAT TD (09:06)
[2020-04-25] MEDS ORDERED: FAMO20TA8 PO (09:06)
[2020-04-25] MEDS ORDERED: TOPUD PO (09:06)
[2020-04-25] MEDS: SODIUM POLYSTYRENE SULFONATE 15 G/60 ML BOT PO NR ×2 (11:00→17:03)
[2020-04-25 17:16] LABS: HEMATOCRIT 28.2 % (36.0-48.0)
[2020-04-25] MEDS: FAMOTIDINE 20MG TABLET PO SCH (22:06)
[2020-04-26] VITALS: BP 112/75
[2020-04-26 04:00] VITALS: BP 115/76
[2020-04-26] MEDS: INSULIN LISPRO 100 UNITS/ML SUBCUT SCH ×4 (07:50→20:44)
[2020-04-26] MEDS: BLOOD SUGAR DIAGNOSTIC STRIP TEST SCH ×4 (07:51→20:44)
[2020-04-26] MEDS: FERROUS SULFATE 300MG/5ML UDC GT SCH ×3 (08:57→17:55)
[2020-04-26] MEDS: APIXABAN 2.5 MG TABLET GT SCH ×2 (08:57→20:44)
[2020-04-26] MEDS: DOCUSATE SODIUM 250MG CAPSULE PO SCH (08:57)
[2020-04-26] MEDS: RIVASTIGMINE 4.6 MG/24 HR TD PATCH TD SCH (08:58)
[2020-04-26] MEDS: CEFTRIAXONE 1,000 MG in DEXTROSE 5% WATER 50 ML IV SCH (08:58)
[2020-04-26 12:00] VITALS: BP 124/75
[2020-04-26 16:39] VITALS: BP 121/83
[2020-04-26 18:16] VITALS: BP 123/68
[2020-04-26] MEDS: FAMOTIDINE 20MG TABLET PO SCH (20:44)
== END 2020-04-26 21:40 | disposition home health service (06) | DRG 73 ==
LOC: ER 01:55 → 6EST 05:36 → ENRESERV 07:27 → 6WST 04-23 08:07
PROVIDERS: ADMIT Internal Medicine Geriatric Medicine; ATTEND Internal Medicine Geriatric Medicine
PROC: 0DH64UZ Insertion of Feeding Device into Stomach, Percutaneous Endoscopic Approach (ICD-10-PCS; 2020-04-21)
PROC: 30233N1 Transfusion of Nonautologous Red Blood Cells into Peripheral Vein, Percutaneous Approach (ICD-10-PCS; principal; 2020-04-25)
DX: G90.8 Other disorders of autonomic nervous system (principal); N17.0 Acute kidney failure with tubular necrosis; I82.403 Acute embolism and thrombosis of unspecified deep veins of lower extremity, bilateral; N39.0 Urinary tract infection, site not specified; Z68.1 Body mass index [BMI] 19.9 or less, adult; E44.1 Mild protein-calorie malnutrition; E86.0 Dehydration; D63.8 Anemia in other chronic diseases classified elsewhere; F02.80 Dementia in other diseases classified elsewhere, unspecified severity, without behavioral disturbance, psychotic disturbance, mood disturbance, and anxiety; G30.9 Alzheimer's disease, unspecified; I10 Essential (primary) hypertension; R00.0 Tachycardia, unspecified; R62.7 Adult failure to thrive; Z20.828 Contact with and (suspected) exposure to other viral communicable diseases; M19.90 Unspecified osteoarthritis, unspecified site; R73.9 Hyperglycemia, unspecified; I95.9 Hypotension, unspecified; I25.10 Atherosclerotic heart disease of native coronary artery without angina pectoris; Z74.01 Bed confinement status; Z79.01 Long term (current) use of anticoagulants; I25.2 Old myocardial infarction; Z79.899 Other long term (current) drug therapy
CPT/HCPCS: 36415; 36600; 71045; 80048; 80053; 81003; 82375; 82378; 82805; 82962; 83036; 83540; 83550; 83605; 84155; 84165; 84443; 84484; 85014; 85018; 85025; 86850; 86900; 86920; 87426; 93005; 93970; 99285; J0696; J1650; J1815; J1956; J2250; J3010; J7030; J7060; P9016